=== PATIENT | female | born 1980 ===

== ENCOUNTER 2016-12-24 02:09 | Inpatient (IN) | payer OTHER ==
[2016-12-24] VITALS (25 sets, daily range): BP systolic 88–129; BP diastolic 49–80; PULSE 74–101; TEMP 97.1–98.9
[~2016-12-24] VITALS: Ht 162.6 cm; Wt 80.5 kg
[~2016-12-24 02:09] MED LIST: MOTRIN 600600 MG/TAB PO; PERCOCET 325 MG1 TA2 PO; PRENATAL1 TA1 PO; VALTREX 50500 MG/TAB PO
[2016-12-24] MEDS ORDERED: ZOVIRAX400 MG (02:54)
[2016-12-24 04:45] LABS: BASO % 0.2 % (0.0-2.0); EOS # 0.1 (0.0-0.7); EOS % 1.3 % (0-4.0); GRAN % 72.6 % (42.2-75.2); LYMPH # 1.6 (1.2-3.4); LYMPH % 19.3 % (20.0-51.0); MEAN CELL VOLUME 93 fl (80.0-100.0); MEAN CORPUSCULAR HEMOGLOBIN 32 pg (27.0-31.0); MEAN CORPUSCULAR HGB CONC 34 g/dl (33.0-37.0); MONO # 0.5 (0.1-0.6); MONO % 6.1 % (1.7-9.3); PLATELET COUNT 286 K/mm3 (130-400); RED BLOOD COUNT 3.76 M/mm3 (4.10-5.30); REDCELL DISTRIBUTION WIDTH-CV 14.5 % (11.5-14.5); WHITE BLOOD COUNT 8.3 K/mm3 (4.8-10.8)
[2016-12-24 04:49] LABS: HEMATOCRIT 34.9 % (37.0-47.0)
[2016-12-25 08:00] VITALS: BP 107/73; PULSE 88; TEMP 98
[2016-12-25 08:20] LABS: BASO % 0.2 % (0.0-2.0); EOS # 0.2 (0.0-0.7); EOS % 1.6 % (0-4.0); GRAN # 7.5 (1.4-6.5); HEMATOCRIT 38.4 % (37.0-47.0); HEMOGLOBIN 12.9 g/dl (12.5-16.0); LYMPH # 1.9 (1.2-3.4); LYMPH % 18.4 % (20.0-51.0); MEAN CELL VOLUME 94 fl (80.0-100.0); MEAN CORPUSCULAR HEMOGLOBIN 32 pg (27.0-31.0); MEAN CORPUSCULAR HGB CONC 34 g/dl (33.0-37.0); MEAN PLATELET VOLUME 9.8 fl (7.4-10.4); MONO # 0.7 (0.1-0.6); MONO % 6.3 % (1.7-9.3); PLATELET COUNT 239 K/mm3 (130-400); RED BLOOD COUNT 4.08 M/mm3 (4.10-5.30); REDCELL DISTRIBUTION WIDTH-CV 14.4 % (11.5-14.5); WHITE BLOOD COUNT 10.3 K/mm3 (4.8-10.8)
[2016-12-25] MEDS ORDERED: IBU800 M1 PO (08:31)
[2016-12-25] MEDS ORDERED: PERCOCET 325 MG1 TA2 PO (08:31)
== END 2016-12-25 13:00 | disposition home or self-care (01) | DRG 767 ==
LOC: LDRO 02:09 → OB 03:42 → LDR 03:42 → OB 08:27
PROVIDERS: Obstetrics & Gynecology; Student in an Organized Health Care Education/Training Program
PROC: 10E0XZZ Delivery of Products of Conception, External Approach (ICD-10-PCS; principal; 2016-12-24)
PROC: 10D17ZZ Extraction of Products of Conception, Retained, Via Natural or Artificial Opening (ICD-10-PCS; 2016-12-24)
DX: O69.89X0 Labor and delivery complicated by other cord complications, not applicable or unspecified (principal); O73.0 Retained placenta without hemorrhage; Z3A.39 39 weeks gestation of pregnancy; Z37.0 Single live birth
CPT/HCPCS: J2590; J2795; J7120